=== PATIENT | female | born 1995 | race African-American/Black ===

== ENCOUNTER 2017-06-30 10:34 | Emergency (ER) | payer OTHER ==
[2017-06-30 10:47] VITALS: BP 117/71; PULSE 80; TEMP 98.5; BMI 29.8
--- NOTE | 2017-06-30 11:37 | PDOC ---
History of Present Illness - General Chief Complaint: Cold Symptoms Stated Complaint: NAUSEA Time Seen by Provider: 06/30/17 11:25 History Source: Patient Exam Limitations: No Limitations - History of Present Illness Initial Comments: 06/30/17 11:32 Patient is a 21-year-old female complaining of bodyaches, right throat pain, cough with productive phlegm for 2 days. Denies any fever. No nausea vomiting or diarrhea, denies any chest pain. Past Medical History: History of schizophrenia, is not taking any of her medication Allergies: No known allergies Family History: Non-contributory Social History: Denies smoking, alcohol use, or IVDU Review of Systems GENERAL/CONSTITUTIONAL: [No fever or chills. No weakness. No weight change.] HEAD, EYES, EARS, NOSE AND THROAT: [No change in vision. Sore throat, ear pain. ] CARDIOVASCULAR: [No chest pain or shortness of breath.] RESPIRATORY: [Productive cough, no wheezing, or hemoptysis.] GASTROINTESTINAL: [No nausea, vomiting, diarrhea or constipation. No rectal bleeding.] GENITOURINARY: [No dysuria, frequency, or change in urination.] MUSCULOSKELETAL: [No joint or muscle swelling or pain. No neck or back pain.] SKIN AND BREASTS: [No rash or easy bruising.] NEUROLOGIC: [No headache, vertigo, loss of consciousness, or loss of sensation.] ENDOCRINE: [No increased thirst. No abnormal weight change.] HEMATOLOGIC/LYMPHATIC: [No anemia, easy bleeding, or history of blood clots.] ALLERGIC/IMMUNOLOGIC: [No hives or skin allergy. No latex allergy.] Physical Exam: GENERAL: [The patient is awake, alert, and fully oriented, in no acute distress. ] EYES: [Pupils equal, round and reactive to light, extraocular movements intact, sclera anicteric, conjunctiva clear.] ENT: [Right ear TM erythematous, edema to canal nares patent, oropharynx clear without exudates. Moist mucous membranes. No uvula deviation] NECK: [Normal range of motion, supple without lymphadenopathy, JVD, or masses.] LUNGS: [Breath sounds equal, clear to auscultation bilaterally. No wheezes, and no crackles.] HEART: [Regular rate and rhythm, normal S1 and S2 without murmur, rub or gallop. ] ABDOMEN: [Soft, nontender, normoactive bowel sounds. No guarding, no rebound. No masses. No bruising or abrasions] MUSCULOSKELETAL: [Normal range of motion, no edema. No clubbing or cyanosis. No cords, erythema, or tenderness. No CVA Tenderness with fist.] NEUROLOGICAL: [Cranial nerves II through XII grossly intact. Normal speech, normal gait.] SKIN: [Warm, Dry, normal turgor, no rashes or lesions noted.] Past History - Past Medical History Allergies/Adverse Reactions: Allergies Allergy/AdvReac Type Severity Reaction Status Date / Time No Known Allergies Allergy Verified 06/30/17 10:45 Home Medications: Ambulatory Orders Amoxicillin - [Amoxicillin 500mg Capsule -] 500 mg PO BID #20 capsule 06/30/17 CVA: No COPD: No DVT: No - Immunization History Immunization Up to Date: Yes - Suicide/Smoking/Psychosocial Hx Smoking History: Never smoked Have you smoked in the past 12 months: No Information on smoking cessation initiated: No Hx Alcohol Use: No Drug/Substance Use Hx: No Substance Use Type: None *Physical Exam - Vital Signs Last Vital Signs Temp Pulse Resp BP Pulse Ox 98.5 F 80 18 117/71 98 06/30/17 10:45 06/30/17 10:45 06/30/17 10:45 06/30/17 10:45 06/30/17 10:45 Medical Decision Making - Medical Decision Making 06/30/17 11:36 A/P: Patient with a right otitis media will DC on amoxicillin, follow-up with PMD in 2 days if symptoms persist *DC/Admit/Observation/Transfer Diagnosis at time of Disposition: Otitis media Qualifiers: Otitis media type: unspecified Chronicity: acute Qualified Code(s): H66.90 - Otitis media, unspecified, unspecified ear - Discharge Dispostion Disposition: HOME Condition at time of disposition: Stable Admit: No - Prescriptions Prescriptions: Amoxicillin - [Amoxicillin 500mg Capsule -] 500 mg PO BID #20 capsule - Referrals - Patient Instructions Printed Discharge Instructions: DI for Otitis Media (Middle Ear Infection)- Child Additional Instructions: Recommend follow-up with primary care doctor in 2 days if symptoms persist Please make sure to eat yogurt If any increased pain, fever, or any other concerns return to ER - Post Discharge Activity Forms/Work/School Notes: Back to Work
== END 2017-06-30 11:55 | disposition home or self-care (01) ==
LOC: JERFT 10:34
DX: H66.91 Otitis media, unspecified, right ear (principal); F20.9 Schizophrenia, unspecified; Z91.14 Patient's other noncompliance with medication regimen
CPT/HCPCS: 99281-25

== ENCOUNTER 2017-12-09 21:33 | Emergency (ER) | payer OTHER ==
[2017-12-09 21:40] VITALS: BP 118/79; PULSE 78; TEMP 98.8; BMI 26.9
--- NOTE | 2017-12-10 00:11 | PDOC ---
History of Present Illness - General Chief Complaint: Headache Stated Complaint: HEADACHE Time Seen by Provider: 12/09/17 23:51 History Source: Patient - History of Present Illness Initial Comments: 12/10/17 01:01 22 year old female with frintal headache for several days. reports that shes in college and is sometimes stressed. gets headache sometimes. denies NV, dizziness, denies HI/ SI pmhx: schizophernia 12/10/17 01:05 Past History - Past Medical History Allergies/Adverse Reactions: Allergies Allergy/AdvReac Type Severity Reaction Status Date / Time No Known Allergies Allergy Verified 06/30/17 10:45 Home Medications: Ambulatory Orders Amoxicillin - [Amoxicillin 500mg Capsule -] 500 mg PO BID #20 capsule 06/30/17 Ibuprofen 600 mg PO QID PRN #20 tablet 12/10/17 CVA: No COPD: No DVT: No - Immunization History Immunization Up to Date: Yes - Suicide/Smoking/Psychosocial Hx Smoking History: Never smoked Have you smoked in the past 12 months: No Hx Alcohol Use: No Drug/Substance Use Hx: No Substance Use Type: None Review of Systems - Review of Systems Able to Perform ROS?: Yes Is the patient limited Bulgarian proficient: No Constitutional: No: Symptoms Reported, See HPI, Chills, Diaphoresis, Fever, Loss of Appetite, Malaise, Night Sweats, Weakness, Weight Stable, Unintentional Wgt. Loss, Unexplained wgt Loss, Other *Physical Exam - Vital Signs Last Vital Signs Temp Pulse Resp BP Pulse Ox 98.8 F 78 18 118/79 100 12/09/17 21:37 12/09/17 21:37 12/09/17 21:37 12/09/17 21:37 12/09/17 21:37 *DC/Admit/Observation/Transfer Diagnosis at time of Disposition: Headache Qualifiers: Headache type: tension-type Headache chronicity pattern: acute headache Intractability: not intractable Qualified Code(s): G44.209 - Tension-type headache, unspecified, not intractable - Discharge Dispostion Disposition: HOME - Prescriptions Prescriptions: Ibuprofen 600 mg PO QID PRN #20 tablet PRN Reason: Mild Pain - Referrals - Patient Instructions Printed Discharge Instructions: Tension Headache Additional Instructions: take ibuprofen every 6 hours as needed for headache follow up with your doctor as soon as possible. - Post Discharge Activity
[2017-12-10] MEDS ORDERED: IBUPROFEN 600 MG TABLET (FP) PO ONE ×2 (00:25→00:47)
== END 2017-12-10 01:29 | disposition home or self-care (01) ==
LOC: JERFT 21:33 → JER 21:33
DX: G44.209 Tension-type headache, unspecified, not intractable (principal)
CPT/HCPCS: 99281-25

== ENCOUNTER 2017-12-16 19:23 | Emergency (ER) | payer OTHER ==
[2017-12-16 19:33] VITALS: BP 103/66; PULSE 84; TEMP 98.4; BMI 26.6
--- NOTE | 2017-12-16 21:20 | PDOC ---
History of Present Illness - General Chief Complaint: Cold Symptoms Stated Complaint: PAIN Time Seen by Provider: 12/16/17 21:18 History Source: Patient - History of Present Illness Initial Comments: 12/16/17 21:34 22-year-old female complaining of nasal congestion cough and frontal headache 2 days patient reports that she had to leave school early due to the nasal congestion and cold symptoms. DENIES FEVER/ CHILLS Of note patient reports history of anxiety/schizophrenia currently not on meds. Reports feeling anxious lately because of schools denies suicidal ideation and homicidal ideation. 12/16/17 21:35 Past History - Past Medical History Allergies/Adverse Reactions: Allergies Allergy/AdvReac Type Severity Reaction Status Date / Time No Known Allergies Allergy Verified 06/30/17 10:45 Home Medications: Ambulatory Orders Fluticasone Prop 0.05% Nasal [Flonase -] 1 - 2 spray NS BID #1 spray.pump CVA: No COPD: No DVT: No - Immunization History Immunization Up to Date: Yes - Suicide/Smoking/Psychosocial Hx Smoking History: Never smoked Have you smoked in the past 12 months: No Information on smoking cessation initiated: No Hx Alcohol Use: No Drug/Substance Use Hx: No Substance Use Type: None Review of Systems - Review of Systems Able to Perform ROS?: Yes Is the patient limited Maori proficient: No Constitutional: No: Symptoms Reported, See HPI, Chills, Diaphoresis, Fever, Loss of Appetite, Malaise, Night Sweats, Weakness, Weight Stable, Unintentional Wgt. Loss, Unexplained wgt Loss, Other HEENTM: Yes: Nose Congestion. No: Symptoms Reported, See HPI, Eye Pain, Blurred Vision, Tearing, Recent change in vision, Double Vision, Cataracts, Ear Pain, Ocular Prothesis, Ear Discharge, Nose Pain, Tinnitus, Nose Bleeding, Hearing Loss, Throat Pain, Throat Swelling, Mouth Pain, Dental Problems, Difficulty Swallowing, Mouth Swelling, Other Respiratory: Yes: Cough Neurological: Yes: Headache. No: Symptoms reported, See HPI, Numbness, Paresthesia, Pre-Existing Deficit, Seizure, Tingling, Tremors, Weakness, Unsteady Gait, Ataxia, Dizziness, Other *Physical Exam - Vital Signs Last Vital Signs Temp Pulse Resp BP Pulse Ox 98.4 F 84 16 103/66 97 12/16/17 19:31 12/16/17 19:31 12/16/17 19:31 12/16/17 19:31 12/16/17 19:31 - Physical Exam General Appearance: Yes: Appropriately Dressed HEENT: positive: Other (MILD FRONTAL SINUS TENDERNESS) Respiratory/Chest: positive: Lungs Clear *DC/Admit/Observation/Transfer Diagnosis at time of Disposition: URI with cough and congestion - Discharge Dispostion Disposition: HOME - Prescriptions Prescriptions: Fluticasone Prop 0.05% Nasal [Flonase -] 1 - 2 spray NS BID #1 spray.pump - Referrals - Patient Instructions Printed Discharge Instructions: DI for Common Cold Additional Instructions: use flonase as prescribed. follow up with your doctor as soon as possible. please follow up with your psychologist. - Post Discharge Activity Forms/Work/School Notes: Back to School
== END 2017-12-16 21:38 | disposition home or self-care (01) ==
LOC: JERFT 19:23
DX: R05 Cough (principal); R09.81 Nasal congestion
CPT/HCPCS: 99281-25

== ENCOUNTER 2018-02-10 16:52 | Emergency (ER) | payer OTHER ==
[2018-02-10 17:01] VITALS: BP 112/59; PULSE 90; TEMP 98.5; BMI 26.9
--- NOTE | 2018-02-10 17:01 | PDOC ---
Rapid Medical Evaluation Chief Complaint: Rash Time Seen by Provider: 02/10/18 16:57 Medical Evaluation: Allergies Allergy/AdvReac Type Severity Reaction Status Date / Time No Known Allergies Allergy Verified 06/30/17 10:45 02/10/18 16:58 I have performed a brief in-person evaluation of this patient. The patient presents with a CC of: Rash HPI: Pt is a 22 YO female who states "I spent the night at a friend's house last night and now I have a rash." Pt denies anyone else with a similar rash. Denies changes in soaps, lotions, foods, medication. Denies taking Benadryl [employer]. Pertinent PE: Skin: Erythematous papules over entire body. No signs of secondary infection. Lungs: Clear Heart: RRR Abd: Soft nontender MS. Moves all extremities Neuro: Alert Psych: Age appropriate. The patient will proceed to [facility] for further evaluation. Discharge Disposition - Diagnosis Rash - Referrals - Patient Instructions - Post Discharge Activity
[2018-02-10] MEDS ORDERED: DOXYCYCLINE HYCLATE 100 MG CAPSULE PO ONE ×2 (17:38→17:40)
[2018-02-10] MEDS ORDERED: DEXAMETHASONE SOD PHOSPHATE 10 MG/1 ML VIAL IM ONE (17:38)
[2018-02-10] MEDS ORDERED: DEXAMETHASONE SOD PHOSPHATE 10 MG/1 ML VIAL ONE (17:40)
--- NOTE | 2018-02-10 17:48 | PDOC ---
History of Present Illness - General Chief Complaint: Rash Stated Complaint: RASH Time Seen by Provider: 02/10/18 16:57 History Source: Patient Exam Limitations: Clinical Condition - History of Present Illness Initial Comments: 02/10/18 17:41 Patient with no significant past medication present with complaint of diffuse body rash after spending the night at a friend's place last night. Patient reports seen multiple bugs in a friend's house but not sure what kind of bugs patient reported diffuse red rash which is very itchy all over the body. Patient denies fever, chills, choking sensation, swelling of the tongue or lips. Patient did not take anything for her symptoms Timing/Duration: 24 hours Past History - Past Medical History Allergies/Adverse Reactions: Allergies Allergy/AdvReac Type Severity Reaction Status Date / Time No Known Allergies Allergy Verified 02/10/18 16:58 Home Medications: Ambulatory Orders Famotidine [Pepcid] 20 mg PO BID 5 Days #10 tablet 02/10/18 Hydrocortisone 2.5% Lotion [Hytone 2.5% Lotion -] 1 applic TP BID PRN #1 bottle 02/10/18 Lorazepam [Ativan] 1 mg PO TID 02/10/18 Risperidone [Risperdal] 2 mg PO BID 02/10/18 predniSONE [Deltasone -] 20 mg PO BID 4 Days #8 tablet 02/10/18 CVA: No COPD: No DVT: No Psychiatric Problems: Yes (ANXIETY, PSYCHOSIS) - Immunization History Immunization Up to Date: Yes - Suicide/Smoking/Psychosocial Hx Smoking History: Never smoked Have you smoked in the past 12 months: No Hx Alcohol Use: No Drug/Substance Use Hx: No Substance Use Type: None Review of Systems - Review of Systems Able to Perform ROS?: Yes Is the patient limited Finnish proficient: No Constitutional: No: Chills, Fever HEENTM: No: Symptoms Reported Respiratory: No: Symptoms reported, Shortness of Breath Cardiac (ROS): No: Symptoms Reported ABD/GI: No: Nausea, Vomiting Musculoskeletal: No: Muscle Weakness Integumentary: Yes: Pruritus (itching over rash area), Rash (red rash all over the body) All Other Systems: Reviewed and Negative *Physical Exam - Vital Signs Last Vital Signs Temp Pulse Resp BP Pulse Ox 98.5 F 90 19 112/59 L 98 02/10/18 16:58 02/10/18 16:58 02/10/18 16:58 02/10/18 16:58 02/10/18 16:58 - Physical Exam Comments: 02/10/18 17:49 GENERAL: Well developed, well nourished. Awake and alert. No acute distress. HEENT: Normocephalic, atraumatic. PERRLA, EOMI. No conjunctival pallor. Sclera are non-icteric. Moist mucous membranes. Oropharynx is clear. NECK: Supple. Full ROM. CARDIOVASCULAR: Regular rate and rhythm. No murmurs, rubs, or gallops. Distal pulses are 2+ and symmetric. PULMONARY: No evidence of respiratory distress. Lungs clear to auscultation bilaterally. No wheezing, rales or rhonchi. ABDOMINAL: Soft. Non-tender. Non-distended. No rebound or guarding. No organomegaly. Normoactive bowel sounds. SKIN: diffused urtcarial rash all over the body w/o excoriations. Warm and dry. Normal capillary refill. . NEUROLOGICAL: Alert, awake, appropriate. Gait is normal without ataxia. PSYCHIATRIC: Cooperative. Good eye contact. Appropriate mood 02/10/18 17:50 General Appearance: Yes: Nourished, Appropriately Dressed. No: Apparent Distress Moderate Sedation - Procedure Monitoring Vital Signs: Procedure Monitoring Vital Signs Temperature 98.5 F 02/10/18 16:58 Pulse Rate 90 02/10/18 16:58 Respiratory Rate 19 02/10/18 16:58 Blood Pressure 112/59 L 02/10/18 16:58 O2 Sat by Pulse Oximetry (%) 98 02/10/18 16:58 Medical Decision Making - Medical Decision Making 02/10/18 17:50 Patient with no significant past medication present with complaint of diffuse body rash after spending the night at a friend's place last night.Exam was significant for mild diffuse global urticarial rash w/o excoriations. Symptoms likely ALLERGIC dermatitis. Decadron 10 mg IM given. Doxycycline 20 mg by mouth 1 time given due to unknown bug bites. Patient is stable for discharge on prednisone and Pepcid for antihistamine effect with PCP follow-up. 02/10/18 17:51 *DC/Admit/Observation/Transfer Diagnosis at time of Disposition: Rash, Allergic dermatitis, Urticaria - Discharge Dispostion Disposition: HOME Condition at time of disposition: Stable Decision to Admit order: No - Prescriptions Prescriptions: Famotidine [Pepcid] 20 mg PO BID 5 Days #10 tablet Hydrocortisone 2.5% Lotion [Hytone 2.5% Lotion -] 1 applic TP BID PRN #1 bottle PRN Reason: rash predniSONE [Deltasone -] 20 mg PO BID 4 Days #8 tablet - Referrals Referrals: Jamie Verma MD [Non Staff, Medical] - - Patient Instructions Printed Discharge Instructions: Urticaria (Alternative Therapy), DI for Hives Additional Instructions: take medication as prescribed. follow-up with referred dermatology is symptoms persist for more than 4 days - Post Discharge Activity
== END 2018-02-10 18:01 | disposition home or self-care (01) ==
LOC: JERFT 16:52
PROC: 3E0233Z Introduction of Anti-inflammatory into Muscle, Percutaneous Approach (ICD-10-PCS; principal; 2018-02-10)
DX: L50.9 Urticaria, unspecified (principal); L23.9 Allergic contact dermatitis, unspecified cause
CPT/HCPCS: 99281-25; J1100